=== PATIENT | female | born 1940 | race Caucasian/White ===

== ENCOUNTER 2020-09-30 15:07 | Emergency (ER) | payer MEDICARE ==
[~2020-09-30] VITALS: Ht 152.4 cm; Wt 89.4 kg
[~2020-09-30 15:07] MED LIST: CALCIUM WITH V1 EACH PO; CRUTCH4 USE; FURO20 PO; GLUC500 PO; HYDACE5 PO; LOPE2C PO; MULVITMIND; POTCHL20ER PO; VALA500 PO; Zofran8 MG PO
[2020-09-30] MEDS ORDERED: TURMERIC500 M2 PO (15:59)
[2020-09-30] MEDS ORDERED: ONDA4 PO (16:46)
[2020-09-30] MEDS ORDERED: LORCET 5-325 M1 EACH PO (16:46)
== END 2020-09-30 17:00 | disposition home or self-care (01) ==
LOC: ER 15:07
DX: S92.351A Displaced fracture of fifth metatarsal bone, right foot, initial encounter for closed fracture (principal); Z79.899 Other long term (current) drug therapy; Z88.0 Allergy status to penicillin; Z88.2 Allergy status to sulfonamides; X50.1XXA Overexertion from prolonged static or awkward postures, initial encounter; W18.30XA Fall on same level, unspecified, initial encounter
CPT/HCPCS: 29515; 73630; 99283-25

== ENCOUNTER 2021-05-30 13:44 | Day surgery (SDC) | payer MEDICARE ==
[~2021-05-30] VITALS: Ht 152.4 cm; Wt 89.5 kg
[~2021-05-30 13:44] MED LIST changes: +LORCET 5-325 M1 EACH PO; +ONDA4 PO; +TURMERIC500 M2 PO
== END 2021-05-30 16:40 | disposition home or self-care (01) ==
LOC: ORSCSDS 13:44
PROVIDERS: Student in an Organized Health Care Education/Training Program
PROC: 0DBH8ZX Excision of Cecum, Via Natural or Artificial Opening Endoscopic, Diagnostic (ICD-10-PCS; principal; 2021-05-30 15:00)
PROC: 0DBP8ZX Excision of Rectum, Via Natural or Artificial Opening Endoscopic, Diagnostic (ICD-10-PCS; principal; 2021-05-30 15:00)
PROC: 0DBK8ZX Excision of Ascending Colon, Via Natural or Artificial Opening Endoscopic, Diagnostic (ICD-10-PCS; principal; 2021-05-30 15:00)
DX: Z12.11 Encounter for screening for malignant neoplasm of colon (principal); Z86.010 Personal history of colon polyps; D12.0 Benign neoplasm of cecum; D12.2 Benign neoplasm of ascending colon; D12.8 Benign neoplasm of rectum; K57.30 Diverticulosis of large intestine without perforation or abscess without bleeding; K64.8 Other hemorrhoids; G47.33 Obstructive sleep apnea (adult) (pediatric); E66.01 Morbid (severe) obesity due to excess calories; Z68.37 Body mass index [BMI] 37.0-37.9, adult
CPT/HCPCS: 88305; J0330; J0461; J1100; J2250; J2405; J2704; J3010; J7120

== ENCOUNTER 2024-04-28 15:45 | Emergency (ER) | payer MEDICARE ==
[~2024-04-28] VITALS: Ht 152.4 cm; Wt 83.9 kg
[~2024-04-28 15:45] MED LIST changes: +COMPRESSOR NEB1 EACH INH; +PRED20 PO; +Ventolin5 MG/1 ML INH
[2024-04-28 16:28] LABS: BASOPHILS ABSOLUTE AUTO 0.02 K/mm3 (0.00-0.23); BASOPHILS PERCENT AUTO 1 % (0-2); EOSINOPHILS ABSOLUTE AUTO 0.01 K/mm3 (0.00-0.68); EOSINOPHILS PERCENT AUTO 0 % (0-6); Hematocrit 42.4 % (33.0-51.0); Hemoglobin 14.3 g/dL (11.5-16.0); IMMATURE GRAN ABSOLUTE AUTO 0.04 K/mm3 (0.00-0.10); IMMATURE GRAN PERCENT AUTO 1 % (0-1); LYMPHOCYTES ABSOLUTE AUTO 1.13 K/mm3 (0.84-5.20); LYMPHOCYTES PERCENT AUTO 26 % (21-46); MONOCYTES ABSOLUTE AUTO 0.41 K/mm3 (0.16-1.47); MONOCYTES PERCENT AUTO 9 % (4-13); Mean Corpuscular HGB Conc 33.7 g/dL (31.5-36.5); Mean Corpuscular Volume 86 fL (80-100); Mean Platelet Volume 8.6 fL (9.1-12.4); NEUTROPHILS ABSOLUTE AUTO 2.83 K/mm3 (1.96-9.15); NEUTROPHILS PERCENT AUTO 64 % (41-73); Platelet Count 177 K/mm3 (150-400); RDW Coefficient Variation 12.7 % (11.7-14.2); Red Blood Cell Count 4.93 M/mm3 (3.80-5.20); White Blood Cell Count 4.44 K/mm3 (4.00-11.30)
[2024-04-28 17:12] LABS: Albumin, Blood 3.1 g/dL (3.4-5.0); Albumin/Globulin Ratio 0.7 (0.8-1.8); Bilirubin, Total 0.7 mg/dL (0.1-1.0); Calcium, Blood 8.7 mg/dL (8.5-10.1); Creatinine, Blood 0.76 mg/dL (0.40-1.00); Globulin, Blood 4.3 g/dL (2.2-4.0); Potassium, Blood 3.4 mmol/L (3.5-5.5); Total Protein, Blood 7.4 g/dL (6.4-8.2)
[2024-04-28 17:42] LABS: Source, Urine Straight Cath
[2024-04-28 17:46] LABS: Appearance, Urine Hazy (Clear); Bilirubin, Urine Neg (Neg); Blood, Urine 1+ (Neg); Color, Urine Yellow (P-Yellow); Glucose Qualitative, Urine Neg (Neg); Ketones, Urine 3+ (Neg); Leukocyte Esterase, Urine 1+ (Neg); Nitrite, Urine Pos (Neg); Protein, Urine 2+ (Neg); Urobilinogen, Urine 1+ (Normal)
[2024-04-28 18:02] LABS: Bacteria Many /hpf; Squamous Epithelial Cells Few /hpf (Few)
[2024-04-28] MEDS ORDERED: CefTRIAXone Sodium 1,000 MG in NS 50 ML IV ONE (19:50)
[2024-04-28] MEDS ORDERED: CEPH500 PO (20:08)
[2024-04-29] MEDS ORDERED: Potassium Chloride 20 MEQ/15 ML UDC PO ONE ×2 (06:50→09:10)
[2024-04-29] MEDS ORDERED: Cephalexin Monohydrate 500 MG Cap PO SCH (09:00)
[2024-04-29 11:48] VITALS: BP 151/75
== END 2024-04-29 12:07 | disposition home or self-care (01) ==
LOC: ER 15:45
PROVIDERS: Emergency Medicine
DX: N39.0 Urinary tract infection, site not specified (principal); R53.1 Weakness; Z88.0 Allergy status to penicillin; Z88.2 Allergy status to sulfonamides
CPT/HCPCS: 80053; 81001; 84443; 84484; 85025; 87077; 87086; 87186; 93005; 93010; 96365; 99285-25; A9270; J0696; P9612

== ENCOUNTER 2025-06-08 18:29 | Emergency (ER) | payer MEDICARE ==
[~2025-06-08] VITALS: Ht 149.9 cm; Wt 83.9 kg
[~2025-06-08 18:29] MED LIST changes: +CEPH500 PO
[2025-06-08 19:55] LABS: BASOPHILS ABSOLUTE AUTO 0.04 K/mm3 (0.00-0.23); BASOPHILS PERCENT AUTO 1 % (0-2); EOSINOPHILS ABSOLUTE AUTO 0.02 K/mm3 (0.00-0.68); EOSINOPHILS PERCENT AUTO 0 % (0-6); Hematocrit 44.2 % (33.0-51.0); Hemoglobin 15.3 g/dL (11.5-16.0); IMMATURE GRAN ABSOLUTE AUTO 0.04 K/mm3 (0.00-0.10); IMMATURE GRAN PERCENT AUTO 1 % (0-1); LYMPHOCYTES ABSOLUTE AUTO 1.85 K/mm3 (0.84-5.20); LYMPHOCYTES PERCENT AUTO 22 % (21-46); MONOCYTES ABSOLUTE AUTO 0.79 K/mm3 (0.16-1.47); MONOCYTES PERCENT AUTO 10 % (4-13); Mean Corpuscular HGB Conc 34.6 g/dL (31.5-36.5); Mean Corpuscular Volume 87 fL (80-100); NEUTROPHILS ABSOLUTE AUTO 5.55 K/mm3 (1.96-9.15); NEUTROPHILS PERCENT AUTO 67 % (41-73); NRBC ABSOLUTE 0.00 K/mm3 (0.00-0.02); NRBC Auto 0.0 /100 WBC (0.0-0.2); Platelet Count 166 K/mm3 (150-400); RDW Coefficient Variation 12.0 % (11.7-14.2); RDW Standard Deviation 38.3 fL (35.1-46.3)
[2025-06-08 20:22] LABS: Alanine Aminotransfer (ALT/SGP 25.0 U/L (12-78); Albumin, Blood 3.3 g/dL (3.4-5.0); Albumin/Globulin Ratio 0.8 (0.8-1.8); Anion Gap 8.0 mmol/L (3-11); Aspartate Aminotrans (AST/SGOT 26.0 U/L (12-37); Bilirubin, Total 0.7 mg/dL (0.1-1.0); Blood Urea Nitrogen 12.0 mg/dL (8-24); CO2, Blood 27.0 mmol/L (21-32); Calcium, Blood 9.2 mg/dL (8.5-10.1); Chloride, Blood 102.0 mmol/L (98-108); Creatinine, Blood 0.68 mg/dL (0.40-1.00); Globulin, Blood 3.9 g/dL (2.2-4.0); Glucose, Blood 108.0 mg/dL (70-99); Potassium, Blood 3.9 mmol/L (3.5-5.5); Sodium, Blood 133.0 mmol/L (136-145); Total Protein, Blood 7.2 g/dL (6.4-8.2)
[2025-06-08 22:21] LABS: Source, Urine Clean Catch
[2025-06-08 22:59] LABS: Bilirubin, Urine Neg (Neg); Glucose Qualitative, Urine Neg (Neg); Ketones, Urine 3+ (Neg); Leukocyte Esterase, Urine Neg (Neg); Protein, Urine 1+ (Neg); Specific Gravity, Urine 1.020 (1.003-1.022); Urobilinogen, Urine NORM (Normal)
[2025-06-08 23:27] LABS: Color, Urine Yellow (P-Yellow)
[2025-06-08 23:29] LABS: Red Blood Cells, Urine 0-2 /hpf (0-2)
[2025-06-09 10:25] VITALS: BP 136/54
[2025-06-09] MEDS ORDERED: CIPR500 PO (13:06)
== END 2025-06-09 11:15 | disposition home or self-care (01) ==
LOC: ER 18:29
PROVIDERS: Physician Assistant
DX: N39.0 Urinary tract infection, site not specified (principal); R05.9 Cough, unspecified; Z88.2 Allergy status to sulfonamides; Z88.0 Allergy status to penicillin
CPT/HCPCS: 71045; 80053; 81001; 83605; 85025; 87077; 87086; 87186; 93005; 93010; 97116; 97161; 97530; 99285-25; A9270